=== PATIENT | female | born 1990 | race Caucasian/White ===

== ENCOUNTER 2017-11-09 19:19 | Emergency (ER) | payer OTHER ==
[~2017-11-09] VITALS: Ht 165.1 cm; Wt 97.5 kg
[2017-11-09 19:41] VITALS: Ht 165.1 cm; Wt 97.5 kg
[2017-11-09 22:13] VITALS: BP 123/88
== END 2017-11-09 22:13 | disposition home or self-care (01) ==
LOC: ED 19:19
DX: R05 Cough (principal); R06.02 Shortness of breath; R50.9 Fever, unspecified; M32.9 Systemic lupus erythematosus, unspecified
CPT/HCPCS: J7613

== ENCOUNTER 2017-12-30 03:43 | Emergency (ER) | payer OTHER ==
[~2017-12-30] VITALS: Ht 157.5 cm; Wt 95.0 kg
[2017-12-30 03:47] VITALS: Ht 157.5 cm; Wt 95.0 kg
[2017-12-30 04:30] LABS: BASOPHIL % 0.7 % (0-2); PLATELET COUNT 291 x10^3mcL (130-400); RED CELL DISTRIBUTION WIDTH 13.4 % (11.5-14.5)
[2017-12-30 04:53] LABS: FREE T4 1.19 ng/dL (0.76-1.46)
[2017-12-30 05:50] VITALS: BP 117/70
== END 2017-12-30 05:50 | disposition home or self-care (01) ==
LOC: ED 03:43
PROVIDERS: Emergency Medicine
DX: N93.8 Other specified abnormal uterine and vaginal bleeding (principal)
CPT/HCPCS: 36415; 84439; J1885

== ENCOUNTER 2019-06-27 09:32 | Emergency (ER) | payer OTHER ==
[~2019-06-27] VITALS: Ht 160 cm; Wt 100.7 kg
[2019-06-27 09:47] VITALS: Ht 160 cm; Wt 100.7 kg
[2019-06-27 10:55] LABS: BASOPHIL % 0.3 % (0-2); PLATELET COUNT 207 x10^3mcL (130-400); RED CELL DISTRIBUTION WIDTH 12.9 % (11.5-14.5)
[2019-06-27 11:28] LABS: CALCIUM 8.4 mg/dL (8.5-10.1); CARBON DIOXIDE 25.5 mmol/L (21-32); CHLORIDE SERUM 107 mmol/L (98-107); CREATININE SERUM 0.5 mg/dL (0.6-1.0); GFR1 > 60 mL/min; GLUCOSE SERUM 123 mg/dL (74-106); SODIUM SERUM 139 mmol/L (136-145)
[2019-06-27 11:33] LABS: ALKALINE PHOSPHATASE 66 U/L (46-116); ALT/SGPT 16 U/L (14-59); AST/SGOT 10 U/L (15-37); BILIRUBIN TOTAL 0.31 mg/dL (0.20-1.00)
[2019-06-27 11:34] LABS: ALBUMIN 2.6 g/dL (3.4-5.0); TOTAL PROTEIN, SERUM 5.9 g/dL (6.4-8.2)
[2019-06-27 12:23] VITALS: BP 118/70
[2019-06-27 12:29] LABS: UA SPECIFIC GRAVITY 1.015 (1.005-1.035); microscopic required? YES; urine erythrocyte TRACE (NEGATIVE)
== END 2019-06-27 12:23 | disposition home or self-care (01) ==
LOC: ED 09:32
PROVIDERS: Emergency Medicine
DX: O26.892 Other specified pregnancy related conditions, second trimester (principal); S39.011A Strain of muscle, fascia and tendon of abdomen, initial encounter; X58.XXXA Exposure to other specified factors, initial encounter; Y93.89 Activity, other specified; Y92.89 Other specified places as the place of occurrence of the external cause; Y99.8 Other external cause status; Z3A.21 21 weeks gestation of pregnancy
CPT/HCPCS: 36415